=== PATIENT | male | born 1960 | race Caucasian/White ===

== ENCOUNTER → 2021-03-25 | Outpatient (CLI) | payer OTHER ==
[~2021-03-25] MED LIST: ACETAMINOPHEN325 M1 PO; ALDACTONE25 MG PO; ATENOLOL 50MG T50 M1; BYSTOLIC10 MG PO; CARVEDILOL12.5 MG PO; CARVEDILOL6.25 MG PO; COUMADIN 5 MG TA5 M1 PO; COUMADIN7.5 MG PO; DESYREL50 MG PO; ENOXAPARIN100 MG/1 M SQ; HYDROCHLOROTHIA25 M1; LASIX 40 MG TAB40 M2 PO; LASIX 80 MG TAB80 M1 PO; LASIX 80 MG TAB80 MG PO; LISINOPRIL40 MG PO; LISINOPRIL5 MG PO; NICORETTE2 MG PO; OXECTA5 MG PO; PACERONE 200 M200 M1 PO
== END ==
LOC: HYPER 12:03
PROVIDERS: ATTEND Emergency Medicine Emergency Medical Services
DX: T81.40XA Infection following a procedure, unspecified, initial encounter (principal); L98.422 Non-pressure chronic ulcer of back with fat layer exposed; I42.9 Cardiomyopathy, unspecified; E03.9 Hypothyroidism, unspecified; F32.89 Other specified depressive episodes; F17.290 Nicotine dependence, other tobacco product, uncomplicated; Z79.01 Long term (current) use of anticoagulants; Z95.810 Presence of automatic (implantable) cardiac defibrillator; Z95.4 Presence of other heart-valve replacement; Z79.899 Other long term (current) drug therapy; Y83.8 Other surgical procedures as the cause of abnormal reaction of the patient, or of later complication, without mention of misadventure at the time of the procedure; Y92.238 Other place in hospital as the place of occurrence of the external cause

== ENCOUNTER → 2021-04-01 | Outpatient (CLI) | payer OTHER | LOC: HYPER 07:58 | PROVIDERS: ATTEND Emergency Medicine Emergency Medical Services | DX: T81.49XD Infection following a procedure, other surgical site, subsequent encounter (principal); L98.422 Non-pressure chronic ulcer of back with fat layer exposed; I42.9 Cardiomyopathy, unspecified; E03.9 Hypothyroidism, unspecified; E66.9 Obesity, unspecified; F32.89 Other specified depressive episodes; F17.290 Nicotine dependence, other tobacco product, uncomplicated; Z79.01 Long term (current) use of anticoagulants; Z95.810 Presence of automatic (implantable) cardiac defibrillator; Z95.4 Presence of other heart-valve replacement; Z68.32 Body mass index [BMI] 32.0-32.9, adult; Y83.8 Other surgical procedures as the cause of abnormal reaction of the patient, or of later complication, without mention of misadventure at the time of the procedure ==